=== PATIENT | male | born 1980 | race Two or more races ===

== ENCOUNTER 2024-03-29 23:52 | Emergency (ER) | payer OTHER ==
[~2024-03-29] VITALS: Ht 185.4 cm; Wt 120.2 kg
[2024-03-30] MEDS ORDERED: KETOROLAC TROMETHAMINE 60 MG VIAL IM ONE (01:00)
[2024-03-30 01:30] LABS: HEMATOCRIT 45.9 % (39.0-48.0); HEMOGLOBIN 15.4 g/dL (13-16.00); MEAN CELL VOLUME 87.1 fL (80.0-100.00); MEAN CORPUSCULAR HEMOGLOBIN 29.2 pg (27.00-32.0); MEAN CORPUSCULAR HGB CONC 33.6 g/dl (32.0-36.0); PLATELET COUNT 266 K/uL (150-450); RED BLOOD COUNT 5.28 M/uL (4.00-6.00); RED CELL DISTRIBUTION WIDTH 12.9 % (11.5-14.5)
[2024-03-30 03:06] LABS: ALBUMIN 4.1 gm/dL (3.4-5.0); BILIRUBIN TOTAL 0.39 mg/dL (0.3-1.2); CALCIUM 9.1 mg/dL (8.5-10.1); CREATININE SERUM 1.45 mg/dL (0.70-1.30); GFR 53.37; GLOBULINA 3.8 G/DL (2.4-3.5); POTASSIUM 4.31 mEq/L (3.5-5.1); TOTAL PROTEIN 7.9 gm/dL (6.4-8.2)
[2024-03-30 04:36] LABS: URIC ACID 9.2 mg/dL (3.5-8.5)
[2024-03-30] MEDS ORDERED: KETO10TA2 PO (04:42)
[2024-03-30] MEDS ORDERED: COLCRYS0.6 MG PO (04:42)
[2024-03-30] MEDS ORDERED: TRAMADOL HCL 50 MG TABLET PO ONE (04:45)
== END 2024-03-30 04:46 | disposition home or self-care (01) ==
LOC: ER 23:54
PROVIDERS: General Practice
DX: M10.9 Gout, unspecified (principal)